=== PATIENT | female | born 1960 | race Caucasian/White ===

== ENCOUNTER 2019-01-29 21:08 | Emergency (ER) | payer OTHER ==
[~2019-01-29] VITALS: Ht 172.7 cm; Wt 72.6 kg
[2019-01-29 21:14] VITALS: BP_SYST 141
--- NOTE | 2019-01-29 21:19 | NUR ---
Patient to ER bed 01 for evaluation. Side rails up. Report given to Dorita ONEAL.
--- NOTE | 2019-01-29 21:30 | NUR ---
Pt is coming in for R shoulder and R rib pain post trip and fall at 1500 today. Pt was given norco for pain with no relief. Reports that she had R shoulder surgery 4 months ago. Denies KO. Pain is 10/10. Denies n/v/d or fever. No other complaints/injuries noted. Will cont. to monitor.
--- NOTE | 2019-01-29 21:40 | NUR ---
xray at bedside.
--- NOTE | 2019-01-29 22:01 | NUR ---
ER at bedside examining patient.
[2019-01-29] MEDS ORDERED: MORPHINE SULFATE 10 MG/ML VIAL IM ONE (22:15)
[2019-01-29] MEDS ORDERED: DIPHENHYDRAMINE INJ 50 MG/ML VIAL IM ONE (22:15)
--- NOTE | 2019-01-29 23:00 | NUR ---
Give report to manufacturer representativeJM Kirkland.
[2019-01-29] MEDS ORDERED: DIPHENHYDRAMINE INJ 50 MG/ML VIAL IVP ONE (23:45)
[2019-01-29] MEDS ORDERED: MORPHINE SULFATE 10 MG/ML VIAL IVP ONE (23:45)
--- NOTE | 2019-01-30 00:06 | NUR ---
Per Dr. Bowman, "change the morphine and benadryl IVP to IM."
[2019-01-30] MEDS ORDERED: MORPHINE SULFATE 10 MG/ML VIAL IM ONE (00:15)
[2019-01-30] MEDS ORDERED: DIPHENHYDRAMINE INJ 50 MG/ML VIAL IM ONE (00:15)
--- NOTE | 2019-01-30 01:02 | NUR ---
Provided pt with food. Will cont. to monitor.
[2019-01-30 01:50] VITALS: BP_SYST 141
--- NOTE | 2019-01-30 01:50 | NUR ---
Patient given written and verbal discharge instructions and verbalizes understanding. ER MD Dr. Bowman discussed with patient the results and treatment provided. Patient in stable condition. ID arm band removed. Rx of ibuprofen and norco given. Patient educated on pain management and to follow up with PMD. Pain Scale 0/10. Opportunity for questions provided and answered. Medication side effect fact sheet provided.
== END 2019-01-30 01:50 | disposition home or self-care (01) ==
LOC: SED 21:08
DX: S43.491A Other sprain of right shoulder joint, initial encounter (principal); S20.211A Contusion of right front wall of thorax, initial encounter; G43.909 Migraine, unspecified, not intractable, without status migrainosus; E78.5 Hyperlipidemia, unspecified; F12.10 Cannabis abuse, uncomplicated; Z90.710 Acquired absence of both cervix and uterus; Z91.040 Latex allergy status; Z88.8 Allergy status to other drugs, medicaments and biological substances; W18.39XA Other fall on same level, initial encounter; Y93.89 Activity, other specified; Y92.89 Other specified places as the place of occurrence of the external cause; Y99.8 Other external cause status
CPT/HCPCS: 71100; 73030; 96372 ×2; 99283; J1200 ×2; J2270 ×2